=== PATIENT | female | born 1945 | race Caucasian/White ===

== ENCOUNTER → 2016-08-10 | Outpatient (CLI) | payer MEDICARE, OTHER | LOC: MW.CHFP 08:00 | PROVIDERS: ATTEND Student in an Organized Health Care Education/Training Program | DX: B35.4 Tinea corporis (principal); E03.9 Hypothyroidism, unspecified | CPT/HCPCS: G0463 ==

== ENCOUNTER 2017-09-03 10:42 | Day surgery (SDC) | payer MEDICARE, OTHER ==
[~2017-09-03 10:42] MED LIST: Lactated Ringers 1,000 ML IV SCH; Sodium Chloride 0.9% 10 ML Syringe FLUSH PRN; Sodium Chloride 0.9% 2.5 ML Syringe FLUSH PRN
--- NOTE | 2017-09-03 11:20 | PCM.PREANE ---
Preanesthetic Assessment - Anesthesia/Transfusion/Family Hx Anesthesia History: Prior Anesthesia Without Reaction Other Type of Anesthesia Reaction Comment: Denies any problem in past Family History of Anesthesia Reaction: No Transfusion History: No Prior Transfusion(s) - Review of Systems General: No Symptoms Pulmonary: No Symptoms Cardiovascular: No Symptoms Gastrointestinal: No Symptoms Neurological: No Symptoms Other: Reports: None - Physical Assessment NPO Status Date: 09/02/17 Height: 1.75 m Weight: 61.689 kg ASA Class: 1 Mental Status: Alert & Oriented x3 Airway Class: Mallampati = 1 Dentition: Reports: Normal Dentition ROM/Head Extension: Full Lungs: Clear to Auscultation, Normal Respiratory Effort Cardiovascular: Regular Rate, Regular Rhythm - Allergies Allergies/Adverse Reactions: Allergies Allergy/AdvReac Type Severity Reaction Status Date / Time No Known Allergies Allergy Verified 08/29/17 10:33 - Anesthesia Plan Pre-Op Medication Ordered: None - Acknowledgements Anesthesia Type Planned: MAC (PMH: thyroid replacement) Pt an Appropriate Candidate for the Planned Anesthesia: Yes Alternatives and Risks of Anesthesia Discussed w Pt/Guardian: Yes Pt/Guardian Understands and Agrees with Anesthesia Plan: Yes PreAnesthesia Questionnaire HEENT History: Reports: Other (See Below) Other HEENT History: wears glasses Cardiovascular History: Reports: None Respiratory History: Reports: None Gastrointestinal History: Reports: None Genitourinary History: Reports: None BUYER INTERN History: Reports: , Other (See Below) Other OB/BYN History: Ovarian cyst Musculoskeletal History: Reports: None Neurological History: Reports: None Psychiatric History: Reports: None Endocrine/Metabolic History: Reports: Hypothyroidism Hematologic History: Reports: None Immunologic History: Reports: None Oncologic (Cancer) History: Reports: None Dermatologic History: Reports: None - Infectious Disease History Infectious Disease History: Reports: None - Past Surgical History Head Surgeries/Procedures: Reports: None HEENT Surgical History: Reports: None Cardiovascular Surgical History: Reports: None Respiratory Surgical History: Reports: None GI Surgical History: Reports: Colonoscopy Female Surgical History: Reports: Breast Biopsy, Cystectomy, Other (See Below ) Other Female Surgeries/Procedures: Laparoscopy for ovarian cystectomy Endocrine Surgical History: Reports: None Neurological Surgical History: Reports: None Musculoskeletal Surgical History: Reports: None Oncologic Surgical History: Reports: Biopsy of Breast Dermatological Surgical History: Reports: Other (See Below) - SUBSTANCE USE Smoking Status *Q: Never Smoker Second Hand Smoke Exposure: No Recreational Drug Use History: No - HOME MEDS Home Medications: Home Meds Husam Cit/Mag/D3/Zn/Vamp Creaser/Luis/Bor [Citracal-Vit D + Magnesium] 1 tab PO DAILY 05/24 [History] Fish Oil/DHA/EPA [Fish Oil 1,200 MG] 1 cap PO DAILY 05/24/15 [History] Levothyroxine Sodium [Synthroid] 1 tab PO ACBREAKFAST 05/24/15 [History] Lutein 1 tab PO DAILY 05/24/15 [History] Multivit-Min/FA/Lycopene/Lut [Centrum Silver Tablet] 1 tab PO DAILY 05/24/15 [ History] Lactulose 10 ml PO ASDIRECTED PRN 08/29/17 [History] - CURRENT (IN HOUSE) MEDS Current Meds: Current Medications Lactated Ringer's (Ringers, Lactated) 1,000 mls @ 125 mls/hr IV ASDIRECTED ERNESTO Sodium Chloride (Saline Flush) 10 ml FLUSH ASDIRECTED PRN PRN Reason: Keep Vein Open Sodium Chloride (Saline Flush) 2.5 ml FLUSH ASDIRECTED PRN PRN Reason: Keep Vein Open Sodium Chloride (Saline Flush) 10 ml FLUSH ASDIRECTED PRN PRN Reason: Keep Vein Open Sodium Chloride (Saline Flush) 2.5 ml FLUSH ASDIRECTED PRN PRN Reason: Keep Vein Open
[2017-09-03] MEDS ORDERED: Lidocaine 2% 5 ML SDV ONE (12:43)
[2017-09-03] MEDS ORDERED: fentaNYL 100 MCG/2 ML SDV ONE (12:43)
[2017-09-03] MEDS ORDERED: Propofol 200 MG/20 ML SDV ONE (12:43)
[2017-09-03] MEDS ORDERED: Glycopyrrolate 0.2 MG/ML SDV ONE (13:34)
--- NOTE | 2017-09-03 13:44 | PCM.POSTAN ---
POST ANESTHESIA ASSESSMENT - MENTAL STATUS Mental Status: Alert, Oriented - RESPIRATORY Respiratory Status: Respiratory Rate WNL, Airway Patent, O2 Saturation Stable - CARDIOVASCULAR CV Status: Pulse Rate WNL, Blood Pressure Stable - GASTROINTESTINAL GI Status: No Symptoms - POST OP HYDRATION Hydration Status: Adequate & Stable
--- NOTE | 2017-09-03 13:46 | PCM.OPNOTE ---
- General Post-Op/Procedure Note Date of Surgery/Procedure: 09/03/17 Operative Procedure(s): Colonoscopy Findings: Normal colonoscopy Pre Op Diagnosis: Chronic constipation Post-Op Diagnosis: IBS-c Anesthesia Technique: MAC Primary Surgeon: Christen Longoria Condition: Good
--- NOTE | 2017-09-03 14:05 | PCM48HPAN ---
Post Anesthesia Note - EVALUATION WITHIN 48HRS OF ANESTHETIC Vital Signs in Normal Range: Yes Patient Participated in Evaluation: Yes Respiratory Function Stable: Yes Airway Patent: Yes Cardiovascular Function Stable: Yes Hydration Status Stable: Yes Pain Control Satisfactory: Yes Nausea and Vomiting Control Satisfactory: Yes Mental Status Recovered: Yes Resp Rate: 10
[2017-09-03 14:25] VITALS: BP 101/57
--- NOTE | 2017-09-03 22:33 | OR ---
SURGEON: JOEY RUIZ MD DATE OF PROCEDURE: 09/03/2017 PREOPERATIVE DIAGNOSIS: Change in bowel habits. POSTOPERATIVE DIAGNOSIS: Irritable bowel syndrome, constipation type. PROCEDURE PERFORMED: Diagnostic colonoscopy. ANESTHESIA: MAC. INSTRUMENT USED: Olympus colonoscope. EXTENT OF EXAM: To the cecum. PREPARATION: Good. LIMITATIONS: None. INDICATION FOR EXAMINATION: The patient is a 72-year-old female with chronic constipation that has been getting worse. The patient is now using lactulose in order to have a bowel movement. The decision was made to perform a diagnostic colonoscopy. We discussed the procedure, expected perioperative course, and risks including bleeding, infection, or damage to surrounding structures including perforation. The patient verbalized understanding and wishes to proceed. PROCEDURE IN DETAIL: The patient was brought into the endoscopy suite and placed in the left lateral decubitus position. A time-out was completed verifying the patient's name, age, date of , allergies, and procedure to be performed. Monitored anesthesia care was induced and continuous oxygen was provided via nasal cannula throughout the procedure. After adequate sedation was achieved, a digital rectal exam was performed. This exam was within normal limits. A well lubricated colonoscope was inserted in the rectum and advanced under direct visualization to the level of the cecum. This was especially difficult given the patient had a very redundant colon with multiple twists and turns. After several attempts, I was able to advance my scope safely to the cecum. The cecum was identified by both visual and anatomic landmarks. A photograph was taken to the cecal cap as well as with the scope retroflexed within the cecum. The scope was then fully withdrawn while examining the color, texture, anatomy, and integrity of the mucosa from the cecum to the anal canal. The patient was found to have normal colonic mucosa. The scope was then brought into the rectum and retroflexed to allow visualization of the anal canal opening. This appeared normal and a photograph was taken. The scope was then straightened out and fully withdrawn. The cecum to anus time was 6 minutes. The patient tolerated the procedure well and was taken to PACU in stable condition. ENDOSCOPIC DIAGNOSIS: Irritable bowel syndrome, constipation type. RECOMMENDATIONS: The patient continued to take lactulose for now. We will discuss other options for IBS control in clinic in 2 weeks. LEXIS / MARY /[id number]
== END 2017-09-03 14:15 | disposition home or self-care (01) ==
LOC: MW.SDS 10:42
PROVIDERS: ATTEND Surgery
DX: K58.1 Irritable bowel syndrome with constipation (principal); E03.9 Hypothyroidism, unspecified; Z79.899 Other long term (current) drug therapy
CPT/HCPCS: 45378; J3010; J7120; 00811; J2704

== ENCOUNTER 2024-11-23 06:59 | Day surgery (SDC) | payer MEDICARE, OTHER ==
[2024-11-23] MEDS: Lactated Ringers 1,000 ML IV SCH (08:00)
[2024-11-23] MEDS ORDERED: Propofol 200 MG/20 ML SDV ONE ×2 (09:43→09:44)
[2024-11-23] MEDS ORDERED: Lactated Ringers 1,000 ML IV SCH (10:45)
[2024-11-23 11:43] VITALS: BP 117/58; PULSE 57
== END 2024-11-23 11:35 | disposition home or self-care (01) ==
LOC: MW.SDS 06:59
PROVIDERS: ATTEND Surgery
DX: K64.8 Other hemorrhoids (principal); K62.5 Hemorrhage of anus and rectum; E03.9 Hypothyroidism, unspecified; Z79.82 Long term (current) use of aspirin; Z79.899 Other long term (current) drug therapy; Z79.890 Hormone replacement therapy
CPT/HCPCS: 45378; J1596; J2003; J2704; J7120; 00811; 99100